=== PATIENT | female | born 1985 | race Caucasian/White ===

== ENCOUNTER 2021-01-10 15:04 | Outpatient (CLI) | payer OTHER, SELFPAY ==
--- NOTE | ~2021-01-10 | XR_ITS ---
EXAMINATION: XR lumbar spine 2-3V DATE: 01/10/2021 15:31 INDICATION: Chronic low back pain TECHNIQUE: Anteroposterior and lateral views of the lumbar spine, and cone-down lateral view of the l umbosacral junction were obtained. COMPARISON: 05/27/2017 FINDINGS: There are 2 mm stable retrolisthesis of L4 on L5.. The vertebral body heights are normal. T here is mild loss of intervertebral disc space height at L4-5 and L5-S1. Small degenerative osteophyt es project from the anterior endplates of multiple vertebral bodies. There is no fracture. There is m ild facet osteoarthritis of the lower lumbar spine. An IUD is noted. The bowel gas pattern is normal. IMPRESSION: 1. Mild lumbar spondylosis without acute findings or significant interval change. Reviewed, dictated and finalized at location B. IMPRESSION: 1. Mild lumbar spondylosis without acute findings or significant interval ambar jones
== END 2021-01-10 15:05 ==
PROVIDERS: Visit Provider Chiropractor
DX: M54.5 Low back pain (principal); M47.816 Spondylosis without myelopathy or radiculopathy, lumbar region
CPT/HCPCS: 72100

== ENCOUNTER → 2021-03-08 07:40 | Outpatient (CLI) | payer OTHER, SELFPAY ==
--- NOTE | ~2021-03-08 | MR_ITS ---
. EXAMINATION: MR lumbar spine wo con DATE: 03/08/2021 08:34 INDICATION: Chronic low back pain. TECHNIQUE: Magnetic resonance imaging (MRI) of the lumbar spine was performed without intravenous con trast. Sequences included sagittal T2-weighted FSE, sagittal T2-weighted FS FSE, sagittal T1-weighted FSE, and axial T2-weighted FSE. COMPARISON: Lumbar spine radiographs 01/10/2021 FINDINGS: There is 7 degrees levocurvature of lumbar spine. Vertebral body heights are normal. There is moderately decreased disc height at L4-L5 and L5-S1 with endplate remodeling. The distal spinal co rd signal intensity is normal. The conus medullaris is at L1-L2. 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 The following disc levels are specifically discussed: L1-L2: The disc does not extend beyond the endplate margin. There is mild bilateral facet joint osteo arthritis. There is no neural foraminal stenosis. There is no central canal stenosis. L2-L3: The disc does not extend beyond the endplate margin. There is mild right and moderate left fac et joint osteoarthritis. There is no neural foraminal stenosis. There is no central canal stenosis. L3-L4: The disc does not extend beyond the endplate margin. There is mild bilateral facet joint osteo arthritis. There is no neural foraminal stenosis. There is no central canal stenosis. L4-L5: The disc is bulging and has an annular fissure. There is mild left facet joint osteoarthritis. There is mild bilateral neural foraminal stenosis. There is mild central canal stenosis. L5-S1: The disc is bulging and has an annular fissure. There is mild bilateral facet joint osteoarthr itis. There is mild bilateral neural foraminal stenosis. There is mild central canal stenosis. IMPRESSION: 1. Moderate lower lumbar spondylosis. Reviewed, dictated and finalized at location A.
== END ==
PROVIDERS: Visit Provider Chiropractor
DX: M54.5 Low back pain (principal); M47.816 Spondylosis without myelopathy or radiculopathy, lumbar region
CPT/HCPCS: 72148

== ENCOUNTER 2022-07-12 08:42 | Emergency (ER) | payer OTHER, SELFPAY ==
[2022-07-12 08:47] VITALS: BP 105/68; PULSE 88; RESP 16; TEMP 36.1; O2SAT 98
--- NOTE | 2022-07-12 09:34 | ED.GENADULT ---
HPI - General Adult General Chief complaint: Upper Respiratory Infection Stated complaint: cold flu Time Seen by Provider: 07/12/22 09:35 Source: patient, RN notes reviewed and old records reviewed Mode of arrival: ambulatory Limitations: no limitations History of Present Illness HPI narrative: 36 year old female who presents to [facility] with 10 day complaint of cold symptoms with her ears full, cough which is loose at times with green phlegm now tight and dry, some nasal congestion and drainage which is yellow with head pressure and facial pressure. Patient reports that she has been taking Mucinex and Claritin and some Ibuprofen. Patient states no present fever, chills or sweats or body aches. MD complaint: cough, head pressure, facial presure Onset (ago): day(s) (10) Severity scale (1-10): 2 Treatments prior to arrival: other (mucinex, Claritin and some Ibuprofen) Related Data Allergies Allergy/AdvReac Type Severity Reaction Status Date / Time morphine Allergy Unknown Hives Verified 12/19/21 15:48 Review of Systems Review of Systems: CONSTITUTIONAL: Denies fever, chills, or sweats. EYES: Denies visual changes, redness, or discharge. ENT: Reports rhinorrhea, congestion,mild sore throat, positive fullness to ears.. CARDIOVASCULAR: Denies chest pain, palpitations, or edema. RESPIRATORY:Reports cough no dyspnea. GASTROINTESTINAL: Denies abdominal pain, nausea, vomiting, or diarrhea. GENITOURINARY: Denies dysuria or hematuria. SKIN: Denies rash or itching. MUSCULOSKELETAL: Chronic back pain,no joint pain, or myalgia. NEUROLOGIC: positive headache,no numbness, or weakness. PSYCHIATRIC: Positive fo history of anxiety or depression. All systems reviewed & are unremarkable except as noted in HPI and below PMFSH Past Medical History Medical History Anxiety Chronic low back pain Depression Deviated septum Headache, migraine Irritable bowel syndrome Surgical History Surgical History History of nasal surgery deviated septum Family History Family History Mother Lung cancer Father Lung cancer Social History Social History (Updated 07/17/22 @ 08:04 by Mehnaz Rivera NP) Smoking status: Never smoker Alcohol intake: current Substance use type: does not use Gender identity (if verbalized by the patient): Female Comments At time of signature, agree with nursing past medical, surgical, social and family history. There is no relevant family history pertinent to the presenting complaint Exam Narrative: GENERAL: Well-appearing, well-nourished, and in no acute distress. HEAD: Normocephalic, atraumatic. EYES: PERRLA and EOMI. ENT: Nares red with yellowish rhinorrhea no epistaxis. Mucous membranes moist.TM's normal with good light reflex, throat pink with no lesions or exudates, no swelling noted, some post nasal drainage. NECK: Supple.no lymphadenopathy CHEST: Clear to auscultation. No respiratory distress.cough noted SAO2 98% on room air HEART: Regular rate and rhythm. No murmur heard. Normal peripheral pulses. ABDOMEN: Soft, nontender, nondistended, normal active bowel sounds. EXTREMITIES: Normal range of motion. No edema. SKIN: Warm, dry, no rash. NEURO: No focal deficits. Alert and oriented x3. Course Course Emergency Course: Patient is aware of diagnosis, understands and agrees to treatment plan.? Anticipatory guidance given.? Patient agrees to follow-up as directed and is aware of reasons to seek care at the emergency department. Portions of this record may have been created with voice recognition software Level of Care: Express Care Visit Vital Signs Vital signs: Vital Signs Temperature 36.1 C L 07/12/22 08:47 Pulse Rate 88 07/12/22 08:47 Respiratory Rate 16 07/12/22 08:47 Blood Pressure 105/68 07/12/22 08:47 Pulse Oximetr
== END 2022-07-12 09:54 | disposition home or self-care (01) ==
PROVIDERS: Emergency Provider Registered Nurse; PCP Internal Medicine
DX: J01.90 Acute sinusitis, unspecified (principal); R05.9 Cough, unspecified
CPT/HCPCS: 99213; G0463